=== PATIENT | male | born 1940 | race Caucasian/White ===

== ENCOUNTER → 2018-07-04 | Outpatient (CLI) | payer OTHER ==
[~2018-07-04] MED LIST: GADOBUTROL 10 ML VIAL IVP ONE
== END ==
LOC: FIMAGING 10:53
PROVIDERS: ATTEND Ophthalmology
DX: H40.013 Open angle with borderline findings, low risk, bilateral (principal); R90.82 White matter disease, unspecified
CPT/HCPCS: 70543; 70553; A9585; 82565-PO

== ENCOUNTER → 2018-11-26 | Outpatient (CLI) | payer OTHER | LOC: BHFA 11:30 | PROVIDERS: ATTEND Internal Medicine Cardiovascular Disease | DX: I65.23 Occlusion and stenosis of bilateral carotid arteries (principal) ==